=== PATIENT | male | born 1940 | race Caucasian/White ===

== ENCOUNTER 2022-06-24 21:55 | Inpatient (IN) ==
[2022-06-24] MEDS ORDERED: Albuterol HFA INHALER 8 gm MDI INH ONE (22:11)
[2022-06-24] MEDS ORDERED: Furosemide 20 mg/2 ml IV VIAL IV ONE (22:12)
[2022-06-24 22:32] LABS: ABS Lymphocytes 0.2 10^3/ul (1.0-4.8); ABS Monocytes 0.2 10^3/ul (0-0.8); ABS Neutrophils 6.4 10^3/ul (1.5-7.7); Eosinophil % 0.1 %; Hematocrit 31 % (42-52); Hemoglobin 10.1 g/dL (14.0-18.0); Lymphocyte % 2.3 %; Mean Corpuscular HGB Conc 32 g/dL (31-36); Mean Corpuscular Hemoglobin 28 pg (27-31); Mean Corpuscular Volume 87 fL (80-94); Mean Platelet Volume 7.9 fL (7.4-10.4); Platelet Count 198 10^3/uL (150-450); Red Blood Count 3.59 10^6 /uL (4.18-5.48); Red Cell Distribution Width 21 % (10-15); White Blood Count 6.8 10^3/uL (3.5-10.8)
[2022-06-24] MEDS ORDERED: Furosemide 40 mg/4 ml IV VIAL IV ONE (22:40)
[2022-06-24 23:04] LABS: Albumin 3.4 g/dL (3.2-5.2); Albumin/Globulin Ratio 0.9 (1-3); Calcium 8.2 mg/dL (8.6-10.3); Globulin 3.6 g/dL (2-4); Potassium 4.2 mmol/L (3.5-5.0); Total Bilirubin 0.7 mg/dL (0.2-1.0); eGFR CKD-EPI 21.7 (>60)
[2022-06-25] MEDS ORDERED: Dextrose 50% Syringe 50 ml 25 GM/50 ML SYRINGE IV PUSH PRN (03:15)
[2022-06-25] MEDS ORDERED: Albuterol HFA INHALER 8 gm MDI INH PRN (03:20)
[2022-06-25] MEDS ORDERED: metroNIDAZOLE IV 500 MG/100ML 500 MG/100 ML BAG IVPB SCH (06:00)
[2022-06-25] MEDS ORDERED: Cefepime 2 GM in Dextrose 2 GM/50 ML BAG IV SCH (06:00)
[2022-06-25 06:09] LABS: ABS Lymphocytes 0.2 10^3/ul (1.0-4.8); ABS Monocytes 0.2 10^3/ul (0-0.8); ABS Neutrophils 4.9 10^3/ul (1.5-7.7); Hematocrit 31 % (42-52); Lymphocyte % 4.1 %; Mean Corpuscular HGB Conc 32 g/dL (31-36); Mean Corpuscular Hemoglobin 28 pg (27-31); Mean Corpuscular Volume 87 fL (80-94); Mean Platelet Volume 8.1 fL (7.4-10.4); Platelet Count 184 10^3/uL (150-450); Red Blood Count 3.56 10^6 /uL (4.18-5.48); Red Cell Distribution Width 21 % (10-15); White Blood Count 5.3 10^3/uL (3.5-10.8)
[2022-06-25 06:17] LABS: Albumin 3.4 g/dL (3.2-5.2); Calcium 8.3 mg/dL (8.6-10.3); Globulin 3.4 g/dL (2-4); Magnesium 2.2 mg/dL (1.9-2.7); Potassium 4.1 mmol/L (3.5-5.0); Total Bilirubin 0.6 mg/dL (0.2-1.0); Total Protein 6.8 g/dL (6.4-8.9); eGFR CKD-EPI 21.4 (>60)
[2022-06-25 06:30] LABS: TSH Ultra Thyroid Stim Horm 1.52 mcIU/mL (0.34-5.60)
[2022-06-25] MEDS: Polyethylene Glycol 3350 17 GM PACKET PO SCH ×2 (08:02→20:57)
[2022-06-25] MEDS ORDERED: Remdesivir 100 mg Vial 200 MG in NS 0.9% 250 ml 210 ML IV ONE (08:30)
[2022-06-25] MEDS: Mometasone/Formoter 200/5 MDI INH SCH ×2 (09:48→19:58)
[2022-06-25] MEDS: SPIRIVA Respimat (tiotropium) 2.5 mcg/inh Inhaler INH SCH (09:49)
[2022-06-25] MEDS ORDERED: Furosemide 40 mg/4 ml IV VIAL IV SLOW PU ONE (11:36)
[2022-06-25] MEDS: Simvastatin 10 mg TAB (NF) PO SCH (21:02)
[2022-06-26 06:23] LABS: Hematocrit 31 % (42-52); Hemoglobin 10.3 g/dL (14.0-18.0); Mean Corpuscular HGB Conc 33 g/dL (31-36); Mean Corpuscular Hemoglobin 29 pg (27-31); Mean Corpuscular Volume 87 fL (80-94); Mean Platelet Volume 7.9 fL (7.4-10.4); Platelet Count 195 10^3/uL (150-450); Red Blood Count 3.58 10^6 /uL (4.18-5.48); Red Cell Distribution Width 20 % (10-15); White Blood Count 5.6 10^3/uL (3.5-10.8)
[2022-06-26 06:44] LABS: Calcium 8.2 mg/dL (8.6-10.3); Magnesium 2.2 mg/dL (1.9-2.7); Potassium 3.9 mmol/L (3.5-5.0); eGFR CKD-EPI 22.1 (>60)
[2022-06-26] MEDS: SPIRIVA Respimat (tiotropium) 2.5 mcg/inh Inhaler INH SCH (07:39)
[2022-06-26] MEDS: Mometasone/Formoter 200/5 MDI INH SCH ×2 (07:39→19:38)
[2022-06-26] MEDS: Polyethylene Glycol 3350 17 GM PACKET PO SCH ×2 (08:18→20:41)
[2022-06-26] MEDS: Remdesivir 100 mg Vial 100 MG in NS 0.9% 250 ml 230 ML IV SCH (08:27)
[2022-06-26] MEDS ORDERED: Albuterol HFA INHALER 8 gm MDI INH SCH (19:00)
[2022-06-26] MEDS ORDERED: Ipratropium HFA INHALER(NF) (ALTERNATIVE = NEBS) INH SCH (19:00)
[2022-06-26] MEDS: Simvastatin 10 mg TAB (NF) PO SCH (20:41)
[2022-06-26] MEDS ORDERED: Albuterol HFA INHALER 8 gm MDI INH PRN (21:17)
[2022-06-27] MEDS: Mometasone/Formoter 200/5 MDI INH SCH ×2 (08:13→19:48)
[2022-06-27] MEDS: SPIRIVA Respimat (tiotropium) 2.5 mcg/inh Inhaler INH SCH (08:13)
[2022-06-27] MEDS: Remdesivir 100 mg Vial 100 MG in NS 0.9% 250 ml 230 ML IV SCH (08:51)
[2022-06-27] MEDS: Polyethylene Glycol 3350 17 GM PACKET PO SCH ×2 (08:51→21:09)
[2022-06-27] MEDS: Simvastatin 10 mg TAB (NF) PO SCH (21:10)
[2022-06-28 06:26] LABS: Hematocrit 32 % (42-52); Hemoglobin 9.9 g/dL (14.0-18.0); Mean Corpuscular HGB Conc 31 g/dL (31-36); Mean Corpuscular Hemoglobin 27 pg (27-31); Mean Corpuscular Volume 87 fL (80-94); Mean Platelet Volume 7.6 fL (7.4-10.4); Platelet Count 219 10^3/uL (150-450); Red Blood Count 3.73 10^6 /uL (4.18-5.48); Red Cell Distribution Width 20 % (10-15); White Blood Count 6.5 10^3/uL (3.5-10.8)
[2022-06-28 06:45] LABS: Calcium 8.2 mg/dL (8.6-10.3); Magnesium 2.3 mg/dL (1.9-2.7); Potassium 4.5 mmol/L (3.5-5.0); eGFR CKD-EPI 28.3 (>60)
[2022-06-28] MEDS: Mometasone/Formoter 200/5 MDI INH SCH (07:49)
[2022-06-28] MEDS: SPIRIVA Respimat (tiotropium) 2.5 mcg/inh Inhaler INH SCH (07:50)
[2022-06-28] MEDS: Polyethylene Glycol 3350 17 GM PACKET PO SCH (09:31)
[2022-06-28] MEDS: Remdesivir 100 mg Vial 100 MG in NS 0.9% 250 ml 230 ML IV SCH (09:36)
[2022-06-28 15:14] VITALS: BP 130/63
== END 2022-06-28 16:45 | DRG 177 ==
LOC: EDHOLD 21:55 → ED 21:55 → SUATTDRO 06-25 02:50 → OBSVTOIN 06-25 02:50 → EDHOLD 06-25 07:37 → MED 06-25 08:47
PROVIDERS: ADMIT Internal Medicine; ATTEND Internal Medicine